=== PATIENT | male | born 1980 ===

== ENCOUNTER 2016-07-18 10:29 | Emergency (ER) | payer OTHER ==
[2016-07-18 10:41] VITALS: BP 120/70
[2016-07-18] MEDS ORDERED: Sodium Chloride 0.9% 1,000 ML IV STA (11:18)
[2016-07-18 11:29] LABS: BASO # 0.1 K/uL (0.0-0.2); BASO % 0.7 % (0.0-2.0); EOS # 0.1 K/uL (0.0-0.7); EOS % 0.9 % (0.0-4.0); HEMATOCRIT 31.9 % (35.0-51.0); LYMPH # 1.9 K/uL (1.0-4.3); LYMPH % 19.9 % (20.0-40.0); MEAN CELL VOLUME 81.9 fl (80.0-94.0); MEAN CORPUSCULAR HEMOGLOBIN 26.5 pg (27.0-31.0); MEAN CORPUSCULAR HGB CONC 32.3 g/dL (33.0-37.0); MEAN PLATELET VOLUME 7.7 fl (7.2-11.7); MONO # 0.7 K/uL (0.0-0.8); MONO % 7.4 % (0.0-10.0); NEUT # 6.7 K/uL (1.8-7.0); NEUT % 71.1 % (50.0-75.0); NRBC % 0.1 % (0.0-0.0); RED CELL DISTRIBUTION WIDTH 25.8 % (11.5-14.5); WHITE BLOOD COUNT 9.5 K/uL (4.8-10.8)
[2016-07-18] MEDS ORDERED: Multivitamin (MVI) 10 ML, Folic Acid 1 MG, Thiamine 100 MG in Dextrose 5%/0.45% NS 1,00... IV ONE (11:30)
[2016-07-18 11:35] LABS: ALB/GLOB RATIO 1.3 (1.0-2.1); ALCOHOL SERUM < 10 mg/dl (0-10); ALKALINE PHOSPHATASE 96 U/L (38-126); ALT/SGPT 34 U/L (21-72); AST/SGOT 35 U/L (17-59); BILIRUBIN,TOTAL 0.4 mg/dl (0.2-1.3); BLOOD UREA NITROGEN 6 mg/dl (9-20); CALCIUM 9.4 mg/dL (8.4-10.2); CARBON DIOXIDE 23 mmol/L (22-30); CHLORIDE 100 mmol/L (98-107); GFR AFRICAN-AMERICAN > 60; GLUCOSE,RANDOM 95 mg/dL (75-110); LIPASE 108 U/L (23-300); MAGNESIUM 1.6 MG/DL (1.6-2.3); PHOSPHOROUS 3.7 mg/dl (2.5-4.5); SODIUM 136 mmol/l (132-148); TOTAL PROTEIN 7.8 G/DL (6.3-8.2)
--- NOTE | 2016-07-18 12:07 | ED PDOC ---
Lower Extremity Pain/Injury Time Seen by Provider: 07/18/16 10:53 Chief Complaint (Nursing): Abdominal Pain Chief Complaint (Provider): Leg pain History Per: Patient History/Exam Limitations: no limitations Onset/Duration Of Symptoms: Mins (prior to arrival) Current Symptoms Are (Timing): Still Present Severity: Moderate Additional Complaint(s): 36 year old male presents to the ED with complaints of bilateral leg pain that he noticed just prior to arrival. He describes the pain as tightness and squeezing, and it radiates upwards to his back. He reports that he can't bend his legs because of the tightness. He admits to being an alcoholic and drinking beer for the leg pain today (instead of water) which he believes caused him to have diarrhea. He denies having any other medical complaints including fever, chills, shortness of breath, chest pain, and any urinary symptoms. (-) leg weakness, saddle anesthesia, bowel or urinary incontinence he notes have surgery on right knee years ago he notes chronic back pain and might have been seen years ago. he denies new back injury and states no old back injury except for fall when he broke his knee which started his back pain problem. besides alcohol at 7am he denies taking and OTC medications because they do not work for him. PMD: [facility] Past Medical History Reviewed: Historical Data, Nursing Documentation, Vital Signs Vital Signs: Last Vital Signs Temp 98.4 F 07/18/16 10:38 Pulse 84 07/18/16 10:38 Resp 18 07/18/16 10:38 BP 120/70 07/18/16 10:38 Pulse Ox 99 07/18/16 10:38 - Medical History PMH: No Chronic Diseases Other PMH: Cirrohsis ? - Family History Family History: States: Unknown Family Hx - Social History Alcohol: > 2 Drinks/Day - Home Medications Home Medications: Ambulatory Orders Medication Instructions Recorded Ibuprofen [Motrin] 600 mg PO TID PRN #30 tab 07/18/16 Methylprednisolone [Medrol Dose 4 mg PO DAILY #1 packet 07/18/16 Pack (21 tabs)] - Allergies Allergies/Adverse Reactions: Allergies Allergy/AdvReac Type Severity Reaction Status Date / Time No Known Allergies Allergy Verified 07/18/16 10:37 Review of Systems ROS Statement: Except As Marked, All Systems Reviewed And Found Negative Constitutional: Negative for: Fever, Chills Cardiovascular: Negative for: Chest Pain, Palpitations Respiratory: Negative for: Shortness of Breath Gastrointestinal: Positive for: Diarrhea (2 times this morning ). Negative for : Nausea, Vomiting, Abdominal Pain, Melena, Hematochezia Genitourinary Male: Negative for: Dysuria, Incontinence, Hematuria Musculoskeletal: Positive for: Leg Pain (bilaterally, radiates up his back) Skin: Negative for: Rash Neurological: Negative for: Headache, Dizziness Physical Exam - Reviewed Nursing Documentation Reviewed: Yes Vital Signs Reviewed: Yes - Physical Exam Appears: Positive for: Well, Non-toxic, No Acute Distress Head Exam: Positive for: ATRAUMATIC, NORMOCEPHALIC Skin: Positive for: Normal Color Eye Exam: Positive for: Normal appearance Neck: Positive for: Normal, Painless ROM Cardiovascular/Chest: Negative for: Regular Rate, Rhythm (possible PVC, placed on monitor- SR 88 no PVCs likely sinus arrythmia ) Respiratory: Positive for: Normal Breath Sounds. Negative for: Respiratory Distress Pulses-Dorsalis Pedis (L): 2+ Pulses-Dorsalis Pedis (R): 2+ Gastrointestinal/Abdominal: Positive for: Normal Exam, Soft, Other (scarring). Negative for: Tenderness Male Genital Exam: Positive for: normal genitalia. Negative for: inguinal tenderness, scrotum tenderness (R), scrotum tenderness (L), testicular tenderness (R), testicular tenderness (L) Back: Positive for: Normal Inspection, Vertebral Tenderness (slight lower lumbar with no step offs ), Muscle Spasm (bilateral paralumbar with tenderness ) . Negative for: L CVA Tenderness, R CVA Tenderness Extremity: Positive for: Tenderness (bilateral legs), Capillary Refill (normal ) , Other (muscle wasting to extremities. Bilateral leg tenderness to the thighs, right worse then left, he can move his legs but states they feel like they are in spasm ). Negative for: Pedal Edema, Calf Tenderness, Swelling Neurologic/Psych: Positive for: Alert, Oriented (3x), Gait (patient will not stand at this time due to pain, will re-evaluate after medications ), Other ( strength 5/5 upper and lower extremities ). Negative for: Motor/Sensory Deficits - Laboratory Results Result Diagrams: 07/18/16 11:15 07/18/16 11:15 - ECG ECG: Positive for: Interpreted By Me, Viewed By Me ECG Rhythm: Positive for: Normal QRS, Normal ST Segment, Sinus Rhythm (75) O2 Sat by Pulse Oximetry: 99 (RA) Pulse Ox Interpretation: Normal Medical Decision Making Medical Decision Makin:53 Initial impression: 36 year old male with bilateral leg tightness. Differential diagnoses include but are not limited to electrolyte abnormality and dehydration. Initial plan: * EKG * alcohol serum * ammonia * CMP * CPK * urinary drug screen * lipase * magnesium * phosphorous * troponin I * CBC with differential * IV NS 1,000 ml: I,000mls/hr * banana bag IV 500mls/hr * pepcid 20mg IVP * toradol 30mg IVP * urinalysis * reevaluation Scribe Attestation: Documented by Ana Don, acting as a scribe for El King PA-C. Provider Scribe Attestation: All medical record entries made by the Scribe were at my direction and personally dictated by me. I have reviewed the chart and agree that the record accurately reflects my personal performance of the history, physical exam, medical decision making, and the department course for this patient. I have also personally directed, reviewed, and agree with the discharge instructions and disposition. labs reviewed with no acute finding. EXAM DATE/TIME: 07/18/2016 6:34 PM COMPARISON: There are no prior studies for comparison. FINDINGS: Right deep veins: Common femoral, superficial femoral, popliteal and posterior tibial veins were evaluated. All veins examined are compressible. There are no intraluminal filling defects. There is expected blood flow on Doppler imaging. There is change in waveform with augmentation. Left deep veins: Common femoral, superficial femoral, popliteal and posterior tibial veins were evaluated. All veins examined are compressible. There are no intraluminal filling defects. There is expected blood flow on Doppler imaging. There is change in waveform with augmentation. Impression: No deep venous thrombosis in the visualized vascular segments of the lower extremities Dictated By: Moni Alvarez MD patient still having some pain, did improve. given symptoms and exam consistent with muscle spasm valium ordered. given patient with back pain, CT lumbar ordered. his neurological exam continues to show no leg weakness, sensation intact, distal pulses 2+, tenderness to the thighs. he has FROM at this time. he is able to stand with some pain to the back. PROCEDURE: CT Lumbar Spine without contrast HISTORY:back pain COMPARISON:None. FINDINGS: VERTEBRAE:Unremarkable. No fracture. Normal alignment. DISCS/SPINAL CANAL/NEURAL FORAMINA: L1-2: Unremarkable. L2-3: Unremarkable. L3-4: Unremarkable. L4-5: Unremarkable. L5-S1: Unremarkable. PARASPINAL SOFT TISSUES:Unremarkable. OTHER FINDINGS:None. IMPRESSION: Unremarkable CT of Lumbar Spine. after CT scan. patient hungry. meal tray provided. CT as above. after further discussion with patient he notes that 2-3 years ago he had the same evaluation for back pain and leg pain at [facility] and was normal and they gave him percocets and he is requesting percocets. Discussed with him pain management laws for narcotic use and hospital policy about narcotics. Tramadol ordered. he states he cannot walk and he cannot be discharged however after RN gave him the tramadol, he again requested percocet and was seen getting up and walking out of the ED at time of discharge. Disposition - Clinical Impression Clinical Impression: Leg pain, Back pain - Patient ED Disposition Is Patient to be Admitted: No Counseled Patient/Family Regarding: Studies Performed, Diagnosis, Need For Followup, Rx Given - Disposition Referrals: [facility] [place] [Outside] [facility] [Outside] Disposition: Routine/Home Disposition Time: 17:26 Condition: STABLE Additional Instructions: follow up with the clinic without fail return for any new concerns including fevers, weakness to the legs, numbness to the genitals or anus, inability to control your bowels or urine Prescriptions: Methylprednisolone [Medrol Dose Pack (21 tabs)] 4 mg PO DAILY #1 packet Ibuprofen [Motrin] 600 mg PO TID PRN #30 tab PRN Reason: Other Instructions: Back Pain (ED), Leg Pain (ED) Print Language: LAO
[2016-07-18 12:18] LABS: URINE BILIRUBIN NEGATIVE (NEGATIVE); URINE BLOOD NEGATIVE (NEGATIVE); URINE COLOR STRAW (YELLOW); URINE GLUCOSE (UA) NEG (Normal); URINE KETONE NEGATIVE (NEGATIVE); URINE LEUKOCYTE ESTERASE NEG Leu/uL (Negative); URINE PROTEIN NEGATIVE (NEGATIVE); URINE UROBILINOGEN 0.2-1.0 mg/dL (0.2-1.0)
[2016-07-18] MEDS ORDERED: Sodium Chloride 0.9% 50 ML IV ONE (15:18)
[2016-07-18] MEDS ORDERED: Iohexol 300 100 ML IJ ONE (15:18)
--- NOTE | 2016-07-18 16:07 | CT ---
PROCEDURE: CT Lumbar Spine without contrast HISTORY: back pain COMPARISON: None. TECHNIQUE: Axial computed tomography images were obtained of the lumbar spine without the use of intravenous contrast. Coronal and sagittal reformatted images were created and reviewed. Radiation dose: Total exam DLP = mGy-cm. FINDINGS: VERTEBRAE: Unremarkable. No fracture. Normal alignment. DISCS/SPINAL CANAL/NEURAL FORAMINA: L1-2: Unremarkable. L2-3: Unremarkable. L3-4: Unremarkable. L4-5: Unremarkable. L5-S1: Unremarkable. PARASPINAL SOFT TISSUES: Unremarkable. OTHER FINDINGS: None. IMPRESSION: Unremarkable CT of Lumbar Spine.
[2016-07-18 17:59] VITALS: PULSE 90; RESP 20; TEMP 98
--- NOTE | 2016-07-18 18:49 | US ---
EXAM: US Duplex Bilateral Lower Extremity Veins. CLINICAL HISTORY: 36 years old, male; Pain; Leg, lower; Bilateral TECHNIQUE: Real-time ultrasound scan of the veins of the bilateral lower extremities with color Doppler flow, spectral waveform analysis and compression. EXAM DATE/TIME: 07/18/2016 6:34 PM COMPARISON: There are no prior studies for comparison. FINDINGS: Right deep veins: Common femoral, superficial femoral, popliteal and posterior tibial veins were evaluated. All veins examined are compressible. There are no intraluminal filling defects. There is expected blood flow on Doppler imaging. There is change in waveform with augmentation. Left deep veins: Common femoral, superficial femoral, popliteal and posterior tibial veins were evaluated. All veins examined are compressible. There are no intraluminal filling defects. There is expected blood flow on Doppler imaging. There is change in waveform with augmentation. Impression: No deep venous thrombosis in the visualized vascular segments of the lower extremities
--- NOTE | 2016-07-19 08:21 | CARD ---
APPROVED REPORT EKG Measurement Heart [id number] <Conclusion> Normal sinus rhythm Normal ECG
[2016-07-19 10:08] VITALS: O2SAT 99
== END 2016-07-18 17:59 | disposition home or self-care (01) ==
LOC: H.ER 10:29
DX: M79.605 Pain in left leg (principal); M54.9 Dorsalgia, unspecified; F10.10 Alcohol abuse, uncomplicated; R19.7 Diarrhea, unspecified